=== PATIENT | female | born 1965 | race Caucasian/White ===

== ENCOUNTER 2021-11-21 20:35 | Emergency (ER) | payer BC ==
[~2021-11-21] VITALS: Ht 172.7 cm; Wt 84.1 kg
[~2021-11-21 20:35] MED LIST: HYDR-4383 PO; ONDA4TAB6 PO; SERT-153 PO
[2021-11-21 20:40] VITALS: BP 139/79
[2021-11-21] MEDS ORDERED: KETO30CR TOP (20:59)
[2021-11-21] MEDS ORDERED: Ivermectin 3mg tablet PO STA (21:24)
== END 2021-11-21 22:29 | disposition home or self-care (01) ==
LOC: EEVIPCON 20:36 → ER 20:36
DX: B35.9 Dermatophytosis, unspecified (principal); R21 Rash and other nonspecific skin eruption; Z88.1 Allergy status to other antibiotic agents; Z88.8 Allergy status to other drugs, medicaments and biological substances; Z79.2 Long term (current) use of antibiotics; Z79.899 Other long term (current) drug therapy
CPT/HCPCS: 99283

== ENCOUNTER 2023-01-15 13:37 | Outpatient (CLI) | payer BC ==
[~2023-01-15 13:37] MED LIST changes: +KETO30CR TOP
[2023-01-15 16:27] LABS: BASOPHILS # (AUTO) 0.1 X10'3 (0-0.2); BASOPHILS % (AUTO) 0.8 % (0-1); EOSINOPHILS # (AUTO) 0.2 X10'3 (0-0.9); EOSINOPHILS % (AUTO) 2.4 % (0-6); HEMATOCRIT 40.5 % (35.0-45.0); HEMOGLOBIN 13.7 g/dl (12.0-16.0); LYMPHOCYTES # (AUTO) 2.7 X10'3 (1.1-4.8); LYMPHOCYTES % (AUTO) 32.1 % (21-51); MEAN CORPUSCULAR HEMOGLOBIN 28.4 PG (27.0-31.0); MEAN CORPUSCULAR HGB CONC 33.7 g/dL (33.0-36.5); MEAN CORPUSCULAR VOLUME 84.4 FL (78-98); MEAN PLATELET VOLUME 7.8 FL (7.4-10.4); MONOCYTES # (AUTO) 0.5 X10'3 (0-0.9); MONOCYTES % (AUTO) 6.2 % (2-12); NEUTROPHILS # (AUTO) 4.9 X10'3 (1.8-7.7); NEUTROPHILS % (AUTO) 58.5 % (42-75); PLATELET COUNT 302 X10'3 (140-440); RED CELL DISTRIBUTION WIDTH 14.5 % (11.5-14.5); WHITE BLOOD COUNT 8.4 X10'3 (4.5-11.0)
[2023-01-15 16:55] LABS: ALANINE AMINOTRANSFERASE 15 U/L (12-78); ALBUMIN 4.2 G/DL (3.4-5.0); ALBUMIN/GLOBULIN RATIO 1.3 (1.1-1.5); ALKALINE PHOSPHATASE 93 IU/L (46-116); ANION GAP 7 (8-16); ASPARTATE AMINO TRANSFERASE 11 U/L (10-37); BILIRUBIN,TOTAL 0.3 MG/DL (0.1-1.0); BLOOD UREA NITROGEN 17 MG/DL (7-18); BUN/CREATININE RATIO 25.4 (10.0-20.0); CHLORIDE 106 MMOL/L (99-107); CHOL/HDL RATIO 3.3 (0.00-4.99); CHOLESTEROL 202 MG/DL (0-200); CREATININE 0.67 MG/DL (0.40-0.90); HDL CHOLESTEROL 61 MG/DL (35-60); LDL CHOLESTEROL 106 MG/DL (50-100); POTASSIUM 4.1 MMOL/L (3.5-5.1); SODIUM 139 MMOL/L (135-145); TOTAL CARBON DIOXIDE 25.9 MMOL/L (24-32); TOTAL PROTEIN 7.4 G/DL (6.4-8.2); TRIGLYCERIDES 349 MG/DL (20-135); eGFR 90 ML/MIN
[2023-01-15 16:57] LABS: GLUCOSE 114 MG/DL (70-104)
[2023-01-17 20:28] LABS: MICROALB/CRT, RATIO <7 mg/g creat (0-29)
== END 2023-01-15 23:59 | disposition home or self-care (01) ==
LOC: RAD 13:37
PROVIDERS: ATTEND Family Medicine
DX: M17.0 Bilateral primary osteoarthritis of knee (principal); M25.461 Effusion, right knee; E78.5 Hyperlipidemia, unspecified; K21.9 Gastro-esophageal reflux disease without esophagitis; K91.2 Postsurgical malabsorption, not elsewhere classified; G47.00 Insomnia, unspecified; M25.561 Pain in right knee
CPT/HCPCS: 36415; 73565; 73721; 80053; 80061; 82043; 82570; 82607; 82746; 84439; 84443; 85025; 86140

== ENCOUNTER 2023-07-17 09:03 | Outpatient (CLI) | payer BC ==
[2023-07-17 10:57] LABS: BASOPHILS # (AUTO) 0.1 X10'3 (0-0.2); EOSINOPHILS # (AUTO) 0.2 X10'3 (0-0.9); EOSINOPHILS % (AUTO) 2.7 % (0-6); HEMATOCRIT 40.4 % (35.0-45.0); HEMOGLOBIN 13.7 g/dl (12.0-16.0); LYMPHOCYTES % (AUTO) 31.7 % (21-51); MEAN CORPUSCULAR HEMOGLOBIN 28.7 PG (27.0-31.0); MEAN CORPUSCULAR HGB CONC 33.9 g/dL (33.0-36.5); MEAN CORPUSCULAR VOLUME 84.6 FL (78-98); MEAN PLATELET VOLUME 8.4 FL (7.4-10.4); MONOCYTES # (AUTO) 0.5 X10'3 (0-0.9); MONOCYTES % (AUTO) 7.6 % (2-12); NEUTROPHILS # (AUTO) 3.6 X10'3 (1.8-7.7); PLATELET COUNT 276 X10'3 (140-440); RED BLOOD COUNT 4.78 X10'6 (4.20-5.60); RED CELL DISTRIBUTION WIDTH 14.2 % (11.5-14.5); WHITE BLOOD COUNT 6.3 X10'3 (4.5-11.0)
[2023-07-17 11:12] LABS: % IRON SATURATION 24 % (11-46); IRON 89 UG/DL (49-151); TOTAL IRON BINDING CAPACITY 378 UG/DL (259-388)
[2023-07-17 12:00] LABS: ALANINE AMINOTRANSFERASE 17 U/L (12-78); ALBUMIN 4.2 G/DL (3.4-5.0); ALBUMIN/GLOBULIN RATIO 1.3 (1.1-1.5); ALKALINE PHOSPHATASE 84 IU/L (46-116); ANION GAP 8 (8-16); ASPARTATE AMINO TRANSFERASE 15 U/L (10-37); BILIRUBIN,TOTAL 0.4 MG/DL (0.1-1.0); BLOOD UREA NITROGEN 10 MG/DL (7-18); BUN/CREATININE RATIO 16.1 (10.0-20.0); CALCIUM 8.8 MG/DL (8.5-10.1); CHLORIDE 104 MMOL/L (99-107); CHOL/HDL RATIO 2.9 (0.00-4.99); CHOLESTEROL 214 MG/DL (0-200); CREATININE 0.62 MG/DL (0.40-0.90); FERRITIN 15 NG/ML (8-252); FREE T4 (FREE THYROXINE) 0.86 NG/DL (0.73-1.40); GLUCOSE 90 MG/DL (70-104); HDL CHOLESTEROL 74 MG/DL (35-60); LDL CHOLESTEROL 115 MG/DL (50-100); POTASSIUM 3.9 MMOL/L (3.5-5.1); SODIUM 137 MMOL/L (135-145); THYROID STIMULATING HORMONE 1.84 ulU/ml (0.34-4.50); TOTAL CARBON DIOXIDE 25.5 MMOL/L (24-32); TOTAL PROTEIN 7.4 G/DL (6.4-8.2); TRIGLYCERIDES 126 MG/DL (20-135); eGFR > 90 ML/MIN
[2023-07-18 11:47] LABS: FOLATE SERUM(FOLIC) 5.9 ng/mL (>3.0); VITAMIN D, 25-HYDROXY 70.9 ng/mL (30.0-100.0)
[2023-07-20 09:13] LABS: CREATININE, URINE 74.1 mg/dL (Not Estab.); MICROALB/CRT, RATIO <4 mg/g creat (0-29); MICROALBUMIN,U,RANDOM <3.0 ug/mL (Not Estab.)
== END 2023-07-17 23:59 | disposition home or self-care (01) ==
LOC: LAB 09:03
PROVIDERS: ATTEND Family Medicine
DX: Z13.29 Encounter for screening for other suspected endocrine disorder (principal); K91.2 Postsurgical malabsorption, not elsewhere classified; K21.9 Gastro-esophageal reflux disease without esophagitis; E78.5 Hyperlipidemia, unspecified; R55 Syncope and collapse; Z91.89 Other specified personal risk factors, not elsewhere classified
CPT/HCPCS: 36415; 80053; 80061; 82043; 82306; 82570; 82607; 82728; 82746; 83540; 83550; 83970; 84439; 84443; 84466; 85025; 86140; 86376

== ENCOUNTER 2023-10-16 15:44 | Outpatient (CLI) | payer BC | END 2023-10-16 23:59 | disposition home or self-care (01) | LOC: RAD 15:44 | PROVIDERS: ATTEND Family Medicine | DX: Z13.6 Encounter for screening for cardiovascular disorders (principal); E78.5 Hyperlipidemia, unspecified; J98.11 Atelectasis | CPT/HCPCS: 75571 ==

== ENCOUNTER 2023-11-27 10:15 | Emergency (ER) | payer BC ==
[~2023-11-27] VITALS: Ht 172.7 cm; Wt 89.1 kg
[2023-11-27 10:17] VITALS: BP 122/78; PULSE 85; RESP 18; O2SAT 98
[2023-11-27] MEDS ORDERED: AMOX-117 PO (10:25)
[2023-11-27] MEDS: amox tr/potassium clavulanate 875/125mg TAB PO ONE (10:41)
[2023-11-27 10:48] VITALS: TEMP 97.8
== END 2023-11-27 10:51 | disposition home or self-care (01) ==
LOC: ER 10:16
DX: J01.90 Acute sinusitis, unspecified (principal); Z88.2 Allergy status to sulfonamides; Z79.2 Long term (current) use of antibiotics; Z79.899 Other long term (current) drug therapy
CPT/HCPCS: 99283

== ENCOUNTER 2024-03-03 06:35 | Outpatient (CLI) | payer BC ==
[2024-03-03 07:39] LABS: BASOPHILS # (AUTO) 0.1 X10'3 (0-0.2); EOSINOPHILS # (AUTO) 0.2 X10'3 (0-0.9); EOSINOPHILS % (AUTO) 3.5 % (0-6); HEMATOCRIT 38.9 % (35.0-45.0); HEMOGLOBIN 13.2 g/dl (12.0-16.0); LYMPHOCYTES % (AUTO) 32.2 % (21-51); MEAN CORPUSCULAR HEMOGLOBIN 28.5 PG (27.0-31.0); MEAN CORPUSCULAR VOLUME 83.7 FL (78-98); MEAN PLATELET VOLUME 8.1 FL (7.4-10.4); MONOCYTES # (AUTO) 0.5 X10'3 (0-0.9); MONOCYTES % (AUTO) 7.8 % (2-12); NEUTROPHILS # (AUTO) 3.5 X10'3 (1.8-7.7); NEUTROPHILS % (AUTO) 55.5 % (42-75); PLATELET COUNT 278 X10'3 (140-440); RED BLOOD COUNT 4.65 X10'6 (4.20-5.60); RED CELL DISTRIBUTION WIDTH 14.6 % (11.5-14.5); WHITE BLOOD COUNT 6.3 X10'3 (4.5-11.0)
[2024-03-03 07:59] LABS: HEMOGLOBIN A1C 5.7 % (4.5-6.2)
[2024-03-03 08:43] LABS: ALANINE AMINOTRANSFERASE 25 U/L (12-78); ALBUMIN 3.8 G/DL (3.4-5.0); ALBUMIN/GLOBULIN RATIO 1.1 (1.1-1.5); ALKALINE PHOSPHATASE 78 IU/L (46-116); ANION GAP 9 (8-16); ASPARTATE AMINO TRANSFERASE 16 U/L (10-37); BILIRUBIN,TOTAL 0.4 MG/DL (0.1-1.0); BLOOD UREA NITROGEN 13 MG/DL (7-18); CALCIUM 9.2 MG/DL (8.5-10.1); CHLORIDE 106 MMOL/L (99-107); CHOL/HDL RATIO 3.2 (0.00-4.99); CHOLESTEROL 212 MG/DL (0-200); CREATININE 0.62 MG/DL (0.40-0.90); GLUCOSE 104 MG/DL (70-104); HDL CHOLESTEROL 66 MG/DL (35-60); LDL CHOLESTEROL 125 MG/DL (50-100); POTASSIUM 4.3 MMOL/L (3.5-5.1); SODIUM 139 MMOL/L (135-145); THYROID STIMULATING HORMONE 3.06 ulU/ml (0.34-4.50); TOTAL CARBON DIOXIDE 23.8 MMOL/L (24-32); TOTAL PROTEIN 7.4 G/DL (6.4-8.2); TRIGLYCERIDES 111 MG/DL (20-135); eGFR > 90 ML/MIN
[2024-03-05 06:00] LABS: FOLATE SERUM(FOLIC) 6.4 ng/mL (>3.0)
== END 2024-03-03 23:59 | disposition home or self-care (01) ==
LOC: LAB 06:35
PROVIDERS: ATTEND Nurse Practitioner
DX: Z13.5 Encounter for screening for eye and ear disorders (principal); E78.5 Hyperlipidemia, unspecified; F41.9 Anxiety disorder, unspecified; Z13.29 Encounter for screening for other suspected endocrine disorder; E53.8 Deficiency of other specified B group vitamins; E55.9 Vitamin D deficiency, unspecified
CPT/HCPCS: 36415; 80053; 80061; 82306; 82607; 82746; 83036; 84443; 85025

== ENCOUNTER 2024-03-08 03:35 | Inpatient (IN) | payer BC ==
[~2024-03-08] VITALS: Ht 170.2 cm; Wt 84.4 kg
[2024-03-08] MEDS ORDERED: iohexol 300mg/ml 100ml inj. ONE (03:48)
[2024-03-08] MEDS: normal saline 1000ml 1,000 ML IV ONE (03:50)
[2024-03-08] MEDS: ondansetron/PF 4mg/2ml inj IV ONE (03:56)
[2024-03-08] MEDS: HYDROmorphone 1 mg/ml syringe IV ONE ×2 (03:57→05:05)
[2024-03-08] MEDS ORDERED: diatr meglu/diatrizoate 30ml oral sol.-(3 dose) bottle ONE (04:15)
[2024-03-08 04:17] LABS: BASOPHILS % (AUTO) 0.6 % (0-1); EOSINOPHILS # (AUTO) 0.2 X10'3 (0-0.9); EOSINOPHILS % (AUTO) 2.2 % (0-6); HEMOGLOBIN 13.1 g/dl (12.0-16.0); LYMPHOCYTES # (AUTO) 3.1 X10'3 (1.1-4.8); LYMPHOCYTES % (AUTO) 38.5 % (21-51); MEAN CORPUSCULAR HEMOGLOBIN 27.6 PG (27.0-31.0); MEAN CORPUSCULAR HGB CONC 32.8 g/dL (33.0-36.5); MONOCYTES # (AUTO) 0.7 X10'3 (0-0.9); MONOCYTES % (AUTO) 8.4 % (2-12); NEUTROPHILS # (AUTO) 4.1 X10'3 (1.8-7.7); NEUTROPHILS % (AUTO) 50.3 % (42-75); PLATELET COUNT 305 X10'3 (140-440); RED BLOOD COUNT 4.76 X10'6 (4.20-5.60); RED CELL DISTRIBUTION WIDTH 14.7 % (11.5-14.5); WHITE BLOOD COUNT 8.1 X10'3 (4.5-11.0)
[2024-03-08 04:38] LABS: ALANINE AMINOTRANSFERASE 21 U/L (12-78); ALBUMIN 3.8 G/DL (3.4-5.0); ALBUMIN/GLOBULIN RATIO 1.1 (1.1-1.5); ALKALINE PHOSPHATASE 89 IU/L (46-116); ANION GAP 12 (8-16); ASPARTATE AMINO TRANSFERASE 14 U/L (10-37); BILIRUBIN,TOTAL 0.3 MG/DL (0.1-1.0); BLOOD UREA NITROGEN 18 MG/DL (7-18); BUN/CREATININE RATIO 24.3 (10.0-20.0); CHLORIDE 105 MMOL/L (99-107); CREATININE 0.74 MG/DL (0.40-0.90); GLUCOSE 168 MG/DL (70-104); LIPASE 35 U/L (16-77); POTASSIUM 3.8 MMOL/L (3.5-5.1); SODIUM 140 MMOL/L (135-145); TOTAL CARBON DIOXIDE 22.7 MMOL/L (24-32); TOTAL PROTEIN 7.2 G/DL (6.4-8.2); eCRCL 80 ML/MIN; eGFR 80 ML/MIN
[2024-03-08] MEDS ORDERED: morphine 2 MG/ML inj. syringe IV PRN (07:20)
[2024-03-08] MEDS ORDERED: mag hydrox/Alum hydrox/simeth 30ml oral suspension PO PRN (07:20)
[2024-03-08] MEDS ORDERED: potassium Cl 40MEQ/1/2NS 520ml 520 ML IV PRN (07:20)
[2024-03-08] MEDS ORDERED: HYDROcodone/acetaminophen 5mg/325mg tablet PO PRN (07:20)
[2024-03-08] MEDS ORDERED: magnesium sulf-water 4G/100mL 100 ML IV PRN (07:20)
[2024-03-08] MEDS ORDERED: magnesium Cl slow-release 64mg tablet PO PRN (07:20)
[2024-03-08] MEDS ORDERED: magnesium sulf-water 2g/50mL 50 ML IV PRN (07:20)
[2024-03-08] MEDS ORDERED: potassium Cl 20 mEq SR tablet PO PRN ×2 (07:20)
[2024-03-08] MEDS ORDERED: acetaminophen 325mg tablet PO PRN (07:20)
[2024-03-08] MEDS ORDERED: ondansetron/PF 4mg/2ml inj IV PRN (07:20)
[2024-03-08 07:50] LABS: MAGNESIUM 2.1 MG/DL (1.5-2.4); POTASSIUM 4.1 MMOL/L (3.5-5.1)
[2024-03-08] MEDS: normal saline 1000ml 1,000 ML IV SCH (07:59)
[2024-03-08] MEDS: docusate sod 100mg capsule PO SCH (08:00)
[2024-03-08] MEDS: K and/or MAG REPLACEMENT MC SCH (08:00)
[2024-03-08] MEDS: HYDROcodone/acetaminophen 10/325mg tab PO PRN (08:00)
[2024-03-08] MEDS: heparin, porcine 5000 units/ml vial SQ SCH (08:00)
[2024-03-08 08:31] LABS: BILIRUBIN,URINE NEGATIVE (Neg); CLARITY,URINE CLEAR (Clear); COLOR,URINE YELLOW (Yellow); GLUCOSE, URINE NEGATIVE (Neg); KETONES,URINE NEGATIVE (Neg); LEUKOCYTE ESTERASE ,URINE NEGATIVE (Neg); NITRITES, URINE NEGATIVE (Neg); OCCULT BLOOD,URINE NEGATIVE (Neg); PH,URINE 6.5 (4.8-8.0); PROTEIN,URINE NEGATIVE (Neg); UROBILINOGEN,URINE 0.2 E.U/dL (0.2-1.0)
[2024-03-08 08:33] LABS: UA COLLECTION TYPE CLN CATCH MIDSTREAM
[2024-03-08] MEDS ORDERED: ALPR-624 PO (11:20)
[2024-03-08] MEDS ORDERED: SUMA25TA35 PO (11:20)
[2024-03-08 11:37] VITALS: BP 114/73; PULSE 95; RESP 16; TEMP 97.9; O2SAT 95
[2024-03-08] MEDS: morphine 2 MG/ML inj. syringe IV PRN (11:53)
[2024-03-08] MEDS: magnesium hydroxide 30ml (MOM) UD suspension PO PRN (14:45)
[2024-03-08 16:00] VITALS: RESP 16
[2024-03-08 18:00] VITALS: BP 120/65; PULSE 65; RESP 16; TEMP 97.5; O2SAT 98
[2024-03-08 20:10] VITALS: RESP 16
[2024-03-08 22:00] VITALS: BP 113/65; PULSE 72; RESP 16; TEMP 96.9; O2SAT 96
[2024-03-09 06:00] VITALS: BP 118/68; PULSE 66; RESP 16; TEMP 97.5; O2SAT 98
[2024-03-09 06:01] LABS: BASOPHILS % (AUTO) 0.5 % (0-1); EOSINOPHILS # (AUTO) 0.2 X10'3 (0-0.9); EOSINOPHILS % (AUTO) 3.4 % (0-6); HEMATOCRIT 37.1 % (35.0-45.0); HEMOGLOBIN 12.5 g/dl (12.0-16.0); LYMPHOCYTES # (AUTO) 1.8 X10'3 (1.1-4.8); LYMPHOCYTES % (AUTO) 26.3 % (21-51); MEAN CORPUSCULAR HEMOGLOBIN 28.3 PG (27.0-31.0); MEAN CORPUSCULAR HGB CONC 33.6 g/dL (33.0-36.5); MEAN PLATELET VOLUME 8.5 FL (7.4-10.4); MONOCYTES # (AUTO) 0.6 X10'3 (0-0.9); MONOCYTES % (AUTO) 8.9 % (2-12); NEUTROPHILS # (AUTO) 4.2 X10'3 (1.8-7.7); NEUTROPHILS % (AUTO) 60.9 % (42-75); PLATELET COUNT 246 X10'3 (140-440); RED BLOOD COUNT 4.42 X10'6 (4.20-5.60); RED CELL DISTRIBUTION WIDTH 14.4 % (11.5-14.5)
[2024-03-09 06:28] LABS: ALANINE AMINOTRANSFERASE 21 U/L (12-78); ALBUMIN 3.2 G/DL (3.4-5.0); ALBUMIN/GLOBULIN RATIO 1.1 (1.1-1.5); ALKALINE PHOSPHATASE 67 IU/L (46-116); ANION GAP 9 (8-16); ASPARTATE AMINO TRANSFERASE 13 U/L (10-37); BILIRUBIN,TOTAL 0.4 MG/DL (0.1-1.0); BLOOD UREA NITROGEN 7 MG/DL (7-18); BUN/CREATININE RATIO 12.5 (10.0-20.0); CALCIUM 8.3 MG/DL (8.5-10.1); CHLORIDE 110 MMOL/L (99-107); CREATININE 0.56 MG/DL (0.40-0.90); GLUCOSE 94 MG/DL (70-104); MAGNESIUM 2.2 MG/DL (1.5-2.4); POTASSIUM 3.8 MMOL/L (3.5-5.1); SODIUM 142 MMOL/L (135-145); TOTAL CARBON DIOXIDE 23.5 MMOL/L (24-32); TOTAL PROTEIN 6.2 G/DL (6.4-8.2); eCRCL 105 ML/MIN; eGFR > 90 ML/MIN
[2024-03-09 08:00] VITALS: RESP 16; O2SAT 98
[2024-03-09 10:00] VITALS: BP 116/65; PULSE 83; RESP 14; TEMP 97.4; O2SAT 99
== END 2024-03-09 13:49 | disposition home health service (06) | DRG 390 ==
LOC: ER 03:36 → ED HOLD 07:25 → ORTHO 4S 10:54
PROVIDERS: ADMIT Internal Medicine; ATTEND Internal Medicine
PROC: BW21YZZ Computerized Tomography (CT Scan) of Abdomen and Pelvis using Other Contrast (ICD-10-PCS; principal; 2024-03-08)
DX: K56.609 Unspecified intestinal obstruction, unspecified as to partial versus complete obstruction (principal); Z88.8 Allergy status to other drugs, medicaments and biological substances
CPT/HCPCS: 36415; 74177; 80053; 81003; 83605; 83690; 83735; 84132; 85025; 96374; 96375; 99285; A6449; G0378; J1170; J2270; J2405; J7030; Q9963; Q9967

== ENCOUNTER 2024-09-22 09:04 | Outpatient (CLI) | payer BC ==
[~2024-09-22 09:04] MED LIST changes: +ALPR-624 PO; +SUMA25TA35 PO
[2024-09-22 09:46] LABS: BASOPHILS # (AUTO) 0.1 X10'3 (0-0.2); EOSINOPHILS # (AUTO) 0.2 X10'3 (0-0.9); EOSINOPHILS % (AUTO) 2.9 % (0-6); HEMATOCRIT 41.3 % (35.0-45.0); HEMOGLOBIN 13.8 g/dl (12.0-16.0); LYMPHOCYTES # (AUTO) 2.1 X10'3 (1.1-4.8); LYMPHOCYTES % (AUTO) 29.8 % (21-51); MEAN CORPUSCULAR HEMOGLOBIN 28.4 PG (27.0-31.0); MEAN CORPUSCULAR HGB CONC 33.3 g/dL (33.0-36.5); MEAN CORPUSCULAR VOLUME 85.2 FL (78-98); MONOCYTES # (AUTO) 0.5 X10'3 (0-0.9); MONOCYTES % (AUTO) 7.2 % (2-12); NEUTROPHILS # (AUTO) 4.2 X10'3 (1.8-7.7); NEUTROPHILS % (AUTO) 59.1 % (42-75); PLATELET COUNT 306 X10'3 (140-440); RED BLOOD COUNT 4.85 X10'6 (4.20-5.60); WHITE BLOOD COUNT 7.1 X10'3 (4.5-11.0)
[2024-09-22 10:41] LABS: GLUCOSE 97 MG/DL (70-104); TOTAL CARBON DIOXIDE 23.2 MMOL/L (24-32)
[2024-09-22 10:43] LABS: ALANINE AMINOTRANSFERASE 20 U/L (12-78); ALBUMIN 4.1 G/DL (3.4-5.0); ALBUMIN/GLOBULIN RATIO 1.1 (1.1-1.5); ALKALINE PHOSPHATASE 81 IU/L (46-116); ANION GAP 12 (8-16); ASPARTATE AMINO TRANSFERASE 12 U/L (10-37); BILIRUBIN,TOTAL 0.3 MG/DL (0.1-1.0); BLOOD UREA NITROGEN 19 MG/DL (7-18); BUN/CREATININE RATIO 30.6 (10.0-20.0); CHLORIDE 104 MMOL/L (99-107); CHOL/HDL RATIO 3.3 (0.00-4.99); CHOLESTEROL 219 MG/DL (0-200); CREATININE 0.62 MG/DL (0.40-0.90); FREE T4 (FREE THYROXINE) 0.75 NG/DL (0.73-1.40); HDL CHOLESTEROL 66 MG/DL (35-60); HEMOGLOBIN A1C 5.6 % (4.5-6.2); LDL CHOLESTEROL 125 MG/DL (50-100); POTASSIUM 4.2 MMOL/L (3.5-5.1); SODIUM 139 MMOL/L (135-145); THYROID STIMULATING HORMONE 2.51 ulU/ml (0.34-4.50); TOTAL PROTEIN 7.9 G/DL (6.4-8.2); TRIGLYCERIDES 93 MG/DL (20-135); eGFR > 90 ML/MIN
== END 2024-09-22 23:59 | disposition home or self-care (01) ==
LOC: LAB 09:04
PROVIDERS: ATTEND Family Medicine
DX: Z11.3 Encounter for screening for infections with a predominantly sexual mode of transmission (principal); Z13.0 Encounter for screening for diseases of the blood and blood-forming organs and certain disorders involving the immune mechanism; Z13.29 Encounter for screening for other suspected endocrine disorder; E55.9 Vitamin D deficiency, unspecified; R73.03 Prediabetes
CPT/HCPCS: 36415; 80053; 80061; 82306; 83036; 84439; 84443; 85025

== ENCOUNTER 2024-10-20 07:58 | Outpatient (CLI) | payer BC | END 2024-10-20 23:59 | disposition home or self-care (01) | LOC: RAD 07:58 | PROVIDERS: ATTEND Family Medicine | DX: K82.4 Cholesterolosis of gallbladder (principal) | CPT/HCPCS: 76700 ==

== ENCOUNTER 2025-01-11 15:12 | Outpatient (CLI) | payer BC ==
--- NOTE | 2025-01-12 17:43 | CARDIOLOGY REPORT ---
APPROVED REPORT EXAM: Comprehensive 2D, Doppler, and color-flow Echocardiogram. Patient Location: OUT-PATIENT Blood Pressure: 108 / 47 mmHg Heart Rate: 70 bpm Rhythm: SINUS Indications MITRAL VALVE PROLAPSE Cartridge Loader: MD rTenton Previous echo: 10/16/21 [facility] EF: 70%; nlLV; nlRV; nlAV; nlMVA-amlMVP; trMR; trTR; noPE 2D Dimensions LVOT Diameter 2.13 (1.8-2.4cm) M-Mode Dimensions Left Atrium(MM) 4.27 (2.5-4.0cm) IVSd 0.76 (0.7-1.1cm) LVDd 4.67 (4.0-5.6cm) Aortic Root 2.77 (2.2-3.7cm) PWd 0.86 (0.7-1.1cm) IVSs 1.24 cm MV EPSS 0.1 (<0.5cm) LVDs 3.05 (2.0-3.8cm) FS (%) 35 % PWs 1.36 cm ESV(Teich) 36.5 ml LVEF(%) 64 (>50%) Aortic Valve AoV Peak Bobby. 116.6 cm/s AoV VTI 23.9 cm AO Peak GR. 5.4 mmHg AO Mean GR. 3 mmHg LVOT VTI 22.54 cm LVOT Peak Bobby. 103.4 cm/s ONNA (VMAX) 3.15 cm2 NONA (VTI) 3.36 cm2 Mitral Valve MV E Velocity 76.1 cm/s MV DECEL TIME 196 ms MV A Velocity 62.8 cm/s MV PHT 48 ms E/A Ratio 1.2 MVA (PHT) 4.60 cm2 Tricuspid Valve TR P. Velocity 221 cm/s RAP ESTIMATE 10 mmHg TR Peak Gr. 20 mmHg RVSP 30 mmHg LEFT VENTRICLE Normal LV size and wall thickness. Overall systolic function is normal. Overall LVEF is 70%. RIGHT VENTRICLE RV is normal size and function. ATRIA Left atrium is mildly dilated. AORTIC VALVE Trileaflet AV appears mildly sclerotic without stenosis or insufficiency. MITRAL VALVE Normal MV annulus without stenosis. Mild anterior leaflet prolapse with trace regurgitation. TRICUSPID VALVE TV appears structurally normal with trace regurgitation. PULMONIC VALVE Normal PV without stenosis, physiologic insufficiency. GREAT VESSELS Aortic root is normal in size. Ascending aorta is normal in size. PERICARDIUM Normal pericardium. No effusion. Conclusion Overall LVEF is 70%. Normal LV size and wall thickness. Overall systolic function is normal. RV is normal size and function. Trileaflet AV appears mildly sclerotic without stenosis or insufficiency. Normal MV annulus without stenosis. Mild anterior leaflet prolapse with trace regurgitation. TV appears structurally normal with trace regurgitation. Normal pericardium. No effusion.
== END 2025-01-11 23:59 | disposition home or self-care (01) ==
LOC: CARD DIAG 15:12
PROVIDERS: ATTEND Family Medicine
DX: I08.8 Other rheumatic multiple valve diseases (principal); Z86.79 Personal history of other diseases of the circulatory system
CPT/HCPCS: 93306

== ENCOUNTER 2025-03-12 15:16 | Outpatient (CLI) | payer BC ==
[2025-03-12 16:15] LABS: MEAN PLATELET VOLUME 8.4 FL (7.4-10.4); RED CELL DISTRIBUTION WIDTH 14.0 % (11.5-14.5)
[2025-03-12 16:39] LABS: CREATININE 0.48 MG/DL (0.40-0.90); TOTAL CARBON DIOXIDE 20.7 MMOL/L (24-32); eGFR > 90 ML/MIN
[2025-03-12 16:40] LABS: CHOL/HDL RATIO 4.5 (0.00-4.99); LDL CHOLESTEROL 119 MG/DL (50-100)
== END 2025-03-12 23:59 | disposition home or self-care (01) ==
LOC: RAD 15:16
PROVIDERS: ATTEND Nurse Practitioner Family
DX: E55.9 Vitamin D deficiency, unspecified (principal); E78.2 Mixed hyperlipidemia; K82.4 Cholesterolosis of gallbladder; R73.03 Prediabetes; Z13.29 Encounter for screening for other suspected endocrine disorder
CPT/HCPCS: 36415; 80053; 80061; 82306; 82607; 82746; 83036; 83690; 84439; 84443; 85025; 86592

== ENCOUNTER 2025-05-07 08:10 | Outpatient (CLI) | payer BC ==
[~2025-05-07 08:10] MED LIST changes: +iohexol 300mg/ml 100ml inj. ONE
[2025-05-07 09:06] LABS: CHOL/HDL RATIO 3.0 (0.00-4.99); LDL CHOLESTEROL 111 MG/DL (50-100)
--- NOTE | 2025-05-07 10:00 | RADIOLOGY REPORT ---
CLINICAL INFORMATION: Abdominal pain. Upper abdominal pain, nausea, abdominal distention. Symptoms for 4 months. TECHNIQUE: Axial CT images of the abdomen and pelvis were obtained after the uneventful administration of 100 mL Omnipaque 300 IV contrast. Postcontrast images were obtained in the arterial and portal venous phases. The patient also ingested oral contrast prior to the examination. Coronal and sagittal reformatted images were obtained, reviewed, and stored. All CT scans at this medical facility are performed using dose modulation techniques as appropriate to a performed exam including the following: Automated exposure control was utilized; adjustment of the MA and/or KV according to patient size; and use of iterative reconstruction technique. CTDIvol = 26.32, 26.93, 0.07, 0.07. mGy DLP = 2518.65 mGy-cm COMPARISON: US ULTRASOUND OF ABDOMEN on DOS: 10/20/24, CT CT ABDOMEN PELVIS on DOS: 03/08/24 FINDINGS: Lung bases: Lung bases are clear. Liver: Mild hepatic steatosis. Biliary: No calcified gallstones or biliary ductal dilatation. Spleen: Unremarkable. Pancreas: Unremarkable. No inflammatory changes, ductal dilatation, or mass identified. Adrenal glands: Unremarkable. No mass. Kidneys: No hydronephrosis or mass. Aorta/Vascular: No aneurysm or significant calcification. Retroperitoneum: No mass or lymphadenopathy. Bowel/mesentery: Postsurgical changes with gastric band in place. The gastric band is in expected position and orientation. No CT evidence for gastric band slippage identified. No small bowel obstruction. No free air or free fluid. Appendix is not visualized. Scattered small colonic diverticula without adjacent inflammatory changes to suggest diverticulitis. Pelvic organs: Uterus is anteverted. Postsurgical changes of tubal ligation. Bladder: Unremarkable. No mass. Abdominal wall: There is a port in the left abdominal wall, with associated catheter tubing extending to the gastric band. Bones: No acute fracture or focal intraosseous lesion. IMPRESSION: 1. Gastric band in place. No CT evidence visualized for gastric band slippage or other complication, although correlation with clinical findings is needed. 2. Scattered small colonic diverticula without adjacent inflammatory changes to suggest diverticulitis. 3. Additional nonacute findings as described above.
== END 2025-05-07 23:59 | disposition home or self-care (01) ==
LOC: RAD 08:10
PROVIDERS: ATTEND Family Medicine
DX: K57.30 Diverticulosis of large intestine without perforation or abscess without bleeding (principal); K21.9 Gastro-esophageal reflux disease without esophagitis; R10.9 Unspecified abdominal pain; M25.561 Pain in right knee; R73.03 Prediabetes; K76.0 Fatty (change of) liver, not elsewhere classified
CPT/HCPCS: 36415; 74177; 80061; Q9967

== ENCOUNTER 2025-05-31 13:12 | Emergency (ER) | payer BC ==
[~2025-05-31] VITALS: Ht 167.6 cm; Wt 81.8 kg
[~2025-05-31 13:12] MED LIST changes: -iohexol 300mg/ml 100ml inj. ONE
[2025-05-31 13:14] VITALS: BP 122/89; PULSE 96; RESP 16; TEMP 98.5; O2SAT 99
[2025-05-31 13:44] LABS: LEUKOCYTE ESTERASE ,URINE SMALL (Neg); NITRITES, URINE POSITIVE (Neg); OCCULT BLOOD,URINE LARGE (Neg)
[2025-05-31 13:46] LABS: UA COLLECTION TYPE CLN CATCH MIDSTREAM
[2025-05-31 13:59] LABS: MUCUS STRANDS FEW /LPF (Neg); SQUAMOUS EPITHELIAL CELL,UR FEW /LPF (FEW); WBC CLUMPS,URINE FEW /HPF (NEGATIVE)
--- NOTE | 2025-05-31 14:59 | Physician Documentation ---
History of Present Illness ~ Chief Complaint: Urinary Symptoms Stated Complaint: UTI Time Seen by MD: 13:30 HPI Patient is seen today with significant dysuria and burning with urination and pelvic discomfort. She states symptoms started couple of days ago. She denies any flank pain or fevers or chills or chest pain or shortness of breath or abdominal pain or nausea, vomiting, diarrhea. Patient has no other concern or complaint at this time. Medication Reconciliation Allergies: Coded Allergies: sulfamethoxazole (Verified Allergy, Unknown, RASH, FEVER, 11/27/23) trimethoprim (Verified Allergy, Unknown, RASH, FEVER, 11/27/23) Scheduled Hydrocodone/Acetaminophen ([place] 5-325 Tablet), 1 TAB PO TID PRN Ketoconazole/Iodoquinol/Hc (Hc 2.5%-Iodoquinol1%-Ketocon2%), 1 APPLIC TOP TID Ondansetron Hcl (Zofran), 1 TAB PO Q6H Sertraline HCl (Sertraline HCl), 1 TABLET PO DAILY, (Reported) Scheduled PRN Alprazolam* (Xanax*), 0.5 MG PO PRN PRN for for anxiety/agitation, (Reported) Sumatriptan Succinate (Imitrex), 1 TAB PO DAILY PRN for migraine headaches, (Rep orted) Past Medical History Past Medical History: No Pertinent History Past Surgical History: noncontributory Patient History: Patient reports no known family medical history. Drug Use: none Lives In: Home Occupation: employed Review of Systems Constitutional: Denies: chills, fever, weakness Eyes: Denies: pain, blurred vision ENT: Denies: ear pain, nose pain, throat pain, mouth pain Respiratory: Denies: cough, shortness of breath Cardiovascular: Denies: chest pain, palpitations Gastrointestinal: Denies: abdominal pain, nausea, vomiting Genitourinary: Denies: burning, dysuria Female Genitalia: Denies: vaginal discharge, pelvic pain Neurological: Denies: headache, dizziness Musculoskeletal: Denies: pain, swelling Integumentary: Denies: rash, lesions Allergic/Immunologic: Denies: hives, itching Hematologic/Lymphatic: Denies: no symptoms reported Psychiatric: Denies: depression, anxiety Physical Exam Vital Signs: Temperature: 98.5, Source: Temporal, Heart Rate: 96, Respiratory Rate: 16, BP: 122/89, Pulse Oximetry: 99, Weight: 81.820 Oxygen Flow Rate: 0 Physical Exam General: Awake and Alert, no acute distress. HEENT: Conjunctiva pink, Sclera clear, Mucus Membranes moist. Neck: Supple without masses and tenderness. Resp: Unlabored. Lungs clear to auscultation bilaterally. Heart: Regular Rate and rhythm, normal S1 and S2 without murmur, rub or gallop. Abdomen: Abdomen is soft, nondistended, tender to palpation in the suprapubic area, otherwise nontender, no guarding, no masses, no rebound tenderness. No CVA tenderness on either side. Extremities: No cyanosis,clubbing or edema. Skin: Warm and Dry. Progress Results/Orders Results/Orders Orders - STORM KINNEY PAC Phenazopyridine Tablet (Pyridium Tablet) (05/31/25 15:05) Completed Orders - STORM KINNEY PAC Ceftriaxone Im Kit W/Lidocaine (Rocephin (05/31/25 14:59) Vital Signs 05/31/25 13:14 Temp 98.5 Pulse 96 Resp 16 B/P (MAP) 122/89 Pulse Ox 99 O2 Flow Rate 0 Laboratory Tests Test 05/31/25 13:16 Urine Specimen Description Cln catch midstream Urine Color Red Urine Clarity Cloudy Urine pH 5.5 Urine Specific [place] 1.025 Urine Protein 100 H Urine Glucose (UA) Negative Urine Ketones Negative Urine Occult Blood Large H Urine Nitrite Positive H Urine Bilirubin Small Urine Urobilinogen 1.0 Urine Leukocyte Esterase Small H Urine RBC Tntc Urine WBC Tntc H Urine WBC Clumps Few Urine Squamous Epithelial Cells Few Urine Transitional Epithelial Cells Urine Bacteria 3+ Urine Mucus Few Urine Culture Indicated Indicated Volume Urine Centrifuged 10 ml Urine Comment Microbiology Date/Time Source Procedure Growth Status 05/31/25 14:00 Urine Clean Catch Midstream Urine Culture - Preliminary Culture received. Resulted Medical Decision Making Findings Patient is seen today with significant dysuria and burning with urination and pelvic discomfort. She states symptoms started couple of days ago. She denies any flank pain or fevers or chills or chest pain or shortness of breath or abdominal pain or nausea, vomiting, diarrhea. Patient has no other concern or complaint at this time. Patient does have significant urinary tract infection on urinalysis, patient started on 1 g of Rocephin IM in the ED along with Pyridium. Prescription of Keflex sent to patient's pharmacy to be taken as indicated and prescribed. Patient will return to ED with any worsening, concerning or changing symptoms. Departure Disposition: 01 HOME / SELF CARE / HOMELESS Impression: Primary Impression: Acute urinary tract infection Condition: Stable Discharge Instructions: Urinary Tract Infection, Adult Additional Instructions: Patient does have significant urinary tract infection on urinalysis, patient started on 1 g of Rocephin IM in the ED along with Pyridium. Prescription of Keflex sent to patient's pharmacy to be taken as indicated and prescribed. Patient will return to ED with any worsening, concerning or changing symptoms. Referrals: NO PRIMARY CARE PROVIDER (PCP) Prescriptions Phenazopyridine HCl (Pyridium) 200 Mg Tablet 1 TAB PO Q8H for urinary discomfort for 3 Days, #9 TAB 0 Refills Prov: STORM KINNEY 05/31/25 Cephalexin*Monohydrate* (Keflex*) 500 Mg Capsule 1 CAP PO Q8H for 7 Days, #21 CAP Prov: STORM KINNEY 05/31/25 Signature Scribe Signature: No scribe Attestation: No scribe STORM KINNEY May 31, 2025 14:58
[2025-05-31] MEDS ORDERED: phenazopyridine 100mg tablet PO STA (15:05)
[2025-05-31] MEDS ORDERED: CEPH-585 PO (15:07)
[2025-05-31] MEDS ORDERED: PHEN-716 PO (15:07)
[2025-05-31] MEDS: CefTRIAXone 1000mg IM Kit (w/lidocaine diluent) IM STA (15:08)
== END 2025-05-31 15:19 | disposition home or self-care (01) ==
LOC: ER 13:12
DX: N39.0 Urinary tract infection, site not specified (principal); Z88.1 Allergy status to other antibiotic agents; Z88.2 Allergy status to sulfonamides; Z88.8 Allergy status to other drugs, medicaments and biological substances
CPT/HCPCS: 81001; 87088; 87186; 96372; 99283; J0696; 87077

== ENCOUNTER 2025-06-21 11:14 | Outpatient (CLI) | payer BC ==
[~2025-06-21 11:14] MED LIST changes: +PHEN-716 PO
--- NOTE | 2025-06-21 12:32 | RADIOLOGY REPORT ---
EXAM: DI KNEE, COMP 4 VW MIN CLINICAL INDICATION: PAIN IN RIGHT KNEE TECHNIQUE: DI KNEE, COMP 4 VW MIN Comparison: KNEES/BILAT AP STANDING on DOS: 01/15/23, MRI LOWER EXTREMITY RIGHT on DOS: 01/15/23 FINDINGS/IMPRESSION: There is no evidence of acute fracture or dislocation. Moderate right knee osteoarthritis. The alignment is anatomical. There is no radiopaque foreign body.
--- NOTE | 2025-06-21 13:57 | RADIOLOGY REPORT ---
[facility] EXAMINATION: MR MRI LOWER EXTREMITY RIGHT TECHNIQUE: MRI of the right knee was performed. The following sequences were obtained without contrast: Sagittal PD Sagittal T2 FS Coronal T1 Coronal PD FS Axial PD FS Oblique ACL view HISTORY: RIGHT KNEE PAIN COMPARISON: DI KNEE, COMP 4 VW MIN on DOS: 06/21/25, KNEES/BILAT AP STANDING on DOS: 01/15/23, MRI LOWER EXTREMITY RIGHT on DOS: 01/15/23 FINDINGS: The bone marrow signal is essentially normal without evidence of acute fracture, avascular necrosis, or aggressive osseous lesion. Inferiorly surfacing oblique tear at the meniscal body extending towards the anterior horn. Full-thickness cartilage loss at the patellofemoral compartment with osteophytes. Focal full-thickness cartilage defect at the weight-bearing aspect of the medial femoral condyle measuring 1.9 cm. Mild generalized cartilage thinning at the lateral compartment. The medial collateral ligament complex is intact. The lateral supporting structures of the knee, including the iliotibial band, fibular collateral ligament, biceps femoris tendon, and popliteus tendon are intact. The anterior and the posterior cruciate ligaments are intact. The extensor mechanism, including both the quadriceps and patellar tendons, is intact. [id number] knee joint effusion. No significant Esteban's cyst. Mild generalized soft tissue edema surrounding the knee. The popliteal neurovascular bundle is within normal limits. IMPRESSION: Inferiorly surfacing oblique tear of the medial meniscus. Moderate to large knee joint effusion. Full-thickness cartilage loss at the patellofemoral compartment diffusely. Focal full-thickness cartilage loss at the weight-bearing aspect of the medial femoral condyle.
== END 2025-06-21 23:59 | disposition home or self-care (01) ==
LOC: RAD 11:14
PROVIDERS: ATTEND Family Medicine
DX: S83.241A Other tear of medial meniscus, current injury, right knee, initial encounter (principal); M25.561 Pain in right knee; M17.0 Bilateral primary osteoarthritis of knee; M25.461 Effusion, right knee; M79.89 Other specified soft tissue disorders; M94.8X6 Other specified disorders of cartilage, lower leg; S83.232A Complex tear of medial meniscus, current injury, left knee, initial encounter; X58.XXXA Exposure to other specified factors, initial encounter; Y93.89 Activity, other specified; Y92.89 Other specified places as the place of occurrence of the external cause; Y99.8 Other external cause status
CPT/HCPCS: 73564; 73721

== ENCOUNTER 2025-08-20 07:52 | Outpatient (CLI) | payer BC ==
[~2025-08-20] VITALS: Ht 172.7 cm; Wt 88.9 kg
[2025-08-20] VITALS (8 sets, daily range): BP systolic 123–135; BP diastolic 70–78; PULSE 60–90; RESP 14–16; O2SAT 96–98
[2025-08-20] MEDS: regadenoson 0.4mg/5ml syringe IV ONE (09:43)
--- NOTE | 2025-08-20 11:51 | RADIOLOGY REPORT ---
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 After a short delay, SPECT tomographic images of the heart were obtained. The patient then went to the stress lab where they received an intravenous Lexiscan utilizing standard protocol. 38 mCi of technetium-99m Sestamibi was injected intravenously immediately after the start of the infusion. Gated SPECT tomographic images of the heart were acquired and processed. FINDINGS: Rotating planar images show no significant attenuation artifact. The left ventricular size is within normal limits. Stress tomographic images demonstrate normal perfusion. Resting tomographic images demonstrate a similar pattern. Gated portion of the study shows normal wall motion and myocardial thickening. The left ventricular ejection fraction is 85%. (normal greater than 50%) IMPRESSION: Normal left ventricular size, wall motion, and function, without evidence of infarction or of myocardium at ischemic risk.The left ventricular ejection fraction is 85%.
== END 2025-08-20 23:59 | disposition home or self-care (01) ==
LOC: RAD 07:52
PROVIDERS: ATTEND Internal Medicine Cardiovascular Disease
DX: I25.10 Atherosclerotic heart disease of native coronary artery without angina pectoris (principal)
CPT/HCPCS: 78452; 93017; A9500; J2785